=== PATIENT | female | born 1970 | race Caucasian/White ===

== ENCOUNTER 2018-09-18 07:35 | Outpatient (CLI) | payer OTHER ==
--- NOTE | 2018-09-18 09:01 | ULT ---
ULTRASOUND ABDOMEN COMPLETE: Date: 09/18/18 INDICATION: Nausea, vomiting, chronic diarrhea, elevated total bilirubin. TECHNIQUE: Mishra-scale ultrasound evaluation of the liver, gallbladder, spleen, pancreas, common bile duct, kidne ys, abdominal aorta, and inferior vena cava (IVC). FINDINGS: No focal hepatic lesion. There is a contracted gallbladder producing prominence of the gallbladder wa ll at 4.0 mm. No evidence of hydronephrosis involving the kidneys. Spleen is of normal volume. No asc ites. Imaged aorta is unremarkable. Pancreas is partially obscured from view by bowel content limitin g assessment. Otherwise, no significant abnormality is documented. IMPRESSION: 1. Contracted gallbladder limiting assessment. 2. No definite acute process of the abdomen is demonstrated by sonographic evaluation. POS: [facility]
== END 2018-09-18 07:36 | disposition home or self-care (01) ==
LOC: ULT 07:35
PROVIDERS: ATTEND Internal Medicine
DX: K52.9 Noninfective gastroenteritis and colitis, unspecified (principal); R11.2 Nausea with vomiting, unspecified; R17 Unspecified jaundice; K82.0 Obstruction of gallbladder
CPT/HCPCS: 76700

== ENCOUNTER 2018-10-28 07:42 | Outpatient (CLI) | payer OTHER ==
--- NOTE | 2018-10-28 08:46 | RAD ---
CERVICAL SPINE 3 VIEWS: Date: 10/28/18 HISTORY: M50.30, DDD, neck pain with numbness and tingling in both arms and hands. Exam includes flexion and extension lateral views. FINDINGS: Disc osteophytosis at C6-C7. No abnormal translation. C7-T1 is partially obscured. IMPRESSION: Spondylosis with disc osteophytosis, most marked at C6-C7. POS: [facility]
--- NOTE | 2018-10-28 08:54 | RAD ---
LUMBAR SPINE THREE VIEWS: HISTORY: Degenerative disk disease. Low back pain. TECHNIQUE: Exam includes standing flexion and extension lateral views. FINDINGS: Generalized minimal disk osteophytosis. No malalignment. No abnormal translation. IMPRESSION: Evidence for lumbar spondylosis without other acute process. POS: [facility]
--- NOTE | 2018-10-28 09:37 | MRI ---
Exam: MRI cervical spine without contrast HISTORY: Neck pain. Numbness and tingling in both upper extremities.. COMPARISON: None FINDINGS: Appropriate T1 marrow signal intensity of the cervical vertebra. Cervical spine vertebral body heigh t is maintained. No fracture. No significant STIR hyperintensity to suggest vertebral body edema or ligamentous. Visualized brain parenchyma, cervicomedullary junction, cervical cord and the upper thoracic cord are normal size and signal intensity C2-C3: No significant central canal stenosis or neural foraminal narrowing C3-C4: No significant central canal stenosis or neural foraminal narrowing C4-C5: No significant central canal stenosis or neural foraminal narrowing C5-C6: Broad-based disc osteophyte complex with a central component. Mass effect upon the thecal sac. Subarachnoid space is maintained. Deformity of the cervical cord, without signal abnormality. Mild central canal stenosis. Minimal bilateral foraminal narrowing. C6-C7: Broad-based discussed by complex abuts the thecal sac. Ventral subarachnoid space is maintaine d. Mild central canal stenosis. No significant mass effect upon the cervical cord. Mild right foraminal narrowing due to uncovertebral hypertrophy. Left neural foramen is patent. C7-T1: No significant central canal stenosis. Neural foramina are patent. IMPRESSION: 1. Degenerative disc disease at C5-C6 and C6-C7 as detailed above. Nevertheless, no high-grade centra l canal stenosis 2. No evidence of cervical spine fracture. No evidence of significant neural foraminal narrowing.
--- NOTE | 2018-10-28 10:04 | MRI ---
MRI LUMBAR SPINE WITHOUT IV CONTRAST: HISTORY: M51.36, degenerative disk disease. Low back pain following a fall two years ago. TECHNIQUE: Multiplanar, multisequence MRI examination of the lumbar spine is performed. FINDINGS: There is some generalized disk desiccation changes and some ligament and facet hypertrophic changes. The conus medullaris region appears unremarkable. Multiple intraosseous benign bony hemangiomas are noted. T12-L1: Unremarkable. L1-L2: Unremarkable. L2-L3: Unremarkable. L3-L4: Unremarkable. L4-L5: Broad-based left posterolateral protrusion with mild lateral recess stenosis and moderate lef t foraminal stenosis. L5-S1: Unremarkable. IMPRESSION: 1. Soft tissue edema changes noted in the dorsal soft tissues, from approximately the L1 through the L3 spinous process levels. 2. Left posterolateral protrusion at L4-L5 with mild lateral recess stenosis and moderate left aditya inal stenosis. Generalized disk desiccation changes and ligament and facet hypertrophic changes. POS: [facility]
== END 2018-10-28 07:43 | disposition home or self-care (01) ==
LOC: TBSIIMAG 07:42
PROVIDERS: ATTEND Neurological Surgery
DX: M51.36 Other intervertebral disc degeneration, lumbar region (principal); M50.322 Other cervical disc degeneration at C5-C6 level; M47.816 Spondylosis without myelopathy or radiculopathy, lumbar region; M47.812 Spondylosis without myelopathy or radiculopathy, cervical region; M25.78 Osteophyte, vertebrae; M79.9 Soft tissue disorder, unspecified; M51.26 Other intervertebral disc displacement, lumbar region; M48.061 Spinal stenosis, lumbar region without neurogenic claudication
CPT/HCPCS: 72040; 72100; 72141; 72148

== ENCOUNTER 2018-11-13 12:32 | Outpatient (CLI) | payer OTHER ==
--- NOTE | 2018-11-13 13:07 | MMO ---
Bilateral MAMMO Bilat Screen [facility]. CLINICAL HISTORY: Patient is 48 years old and is seen for screening. The patient has no family history of breast cancer. The patient has no personal history of cancer. VIEWS: The views performed were: bilateral craniocaudal with tomosynthesis; bilateral mediolateral oblique with tomosynthesis; and left mediolateral oblique. MAMMOGRAM FINDINGS: The breasts are heterogeneously dense, which could obscure a lesion on mammography. There are no suspicious masses, suspicious calcifications, or new areas of architectural distortion. IMPRESSION: THERE IS NO MAMMOGRAPHIC EVIDENCE OF MALIGNANCY. A ROUTINE FOLLOW-UP MAMMOGRAM IN 1 YEAR IS RECOMMENDED. THE RESULTS OF THIS EXAM WERE SENT TO THE PATIENT. ACR BI-RADS Category 1 - Negative MAMMOGRAPHY NOTE: 1. A negative mammogram report should not delay a biopsy if a dominant of clinically suspicious mass is present. 2. Approximately 10% to 15% of breast cancers are not detected by mammography. 3. Adenosis and dense breasts may obscure an underlying neoplasm.
== END 2018-11-13 12:33 | disposition home or self-care (01) ==
LOC: BICMAMMO 12:32
PROVIDERS: ATTEND Internal Medicine
DX: Z12.31 Encounter for screening mammogram for malignant neoplasm of breast (principal)
CPT/HCPCS: 77063; 77067

== ENCOUNTER 2019-01-27 06:30 | Observation (INO) | payer OTHER ==
[2019-01-22 13:05] VITALS: BMI 27.2
[2019-01-27] MEDS ORDERED: Sodium Chloride 0.9% 10 ML ONE (06:54)
[2019-01-27] MEDS ORDERED: Fentanyl 100 MCG/2 ML VIAL ONE ×2 (07:14→09:50)
[2019-01-27] MEDS ORDERED: ceFAZolin Sodium (SDC) 2 GM/100 ML BAG ONE (07:14)
[2019-01-27] MEDS ORDERED: Midazolam HCl 2 mg/2 ml Vial ONE ×2 (07:16→07:54)
[2019-01-27] MEDS ORDERED: Fentanyl 250 MCG/5 ML VIAL ONE (07:28)
[2019-01-27] MEDS ORDERED: HYDROmorphone 2 MG/ML VIAL ONE (10:03)
[2019-01-27] MEDS ORDERED: Glycopyrrolate 0.2 MG/ML 5 ML SYRINGE ONE (10:40)
[2019-01-27] MEDS ORDERED: Ondansetron PF 4 MG/2 ML Vial ONE (10:40)
[2019-01-27] MEDS ORDERED: PHENYLEPHRINE-NS 100 MCG/ML 10 ML SYRINGE ONE (10:40)
[2019-01-27] MEDS ORDERED: Dexamethasone 20 MG/5 ML VIAL ONE (10:40)
[2019-01-27] MEDS ORDERED: Ketorolac Tromethamine 30 MG/ML VIAL ONE (10:40)
--- NOTE | 2019-01-27 11:23 | OP ---
DATE OF PROCEDURE: 01/27/2019 CORPORATE ACCOUNTANT: Forrest Krishnamurthy PA-C PROCEDURES PERFORMED: Anterior cervical diskectomy C5-C6 and C6-C7. interbody arthrodesis, intervertebral biomechanical device, local morselized autograft, demineralized bone matrix, anterior titanium instrumentation C5-C6 and C6-C7. DESCRIPTION OF PROCEDURE: The patient was brought to the operating room and intubated. She was positioned supine with head in modest extension on a gel-filled donut. An incision was made in the right precervical area and dissecting medial sternocleidomastoid muscle. We identified the anterior cervical spine and the level was confirmed by x-ray. We debrided the anterior osteophytes, placed distraction across the disk spaces, and completely decompressed the intervertebral disk. The bony endplates were then decorticated for the purpose of arthrodesis and appropriate-sized intervertebral biomechanical PEEK device was brought into the field, filled with demineralized bone matrix and local morselized autograft, and tapped in place securely at C5-C6 and C6-C7. Next, an anterior plate was brought into the field and secured to C5, C6, and C7 using two 14-mm screws at each level. The wound was then extensively irrigated and MAC hemostasis was secured and the wound was closed in anatomic layers. Job ID: [id number]
[2019-01-27] MEDS ORDERED: Promethazine HCl 25 MG/ML VIAL IM PRN (11:48)
[2019-01-27] MEDS ORDERED: Promethazine HCl 12.5 MG SUPP PR PRN (11:48)
[2019-01-27] MEDS ORDERED: traMADol HCl 50 MG TAB PO PRN ×2 (11:48)
[2019-01-27] MEDS ORDERED: Ondansetron PF 4 MG/2 ML Vial IVP PRN (11:48)
[2019-01-27] MEDS ORDERED: Promethazine 25 MG TAB PO PRN (11:48)
[2019-01-27] MEDS ORDERED: Milk Of Magnesia 30 ML UDCUP PO PRN (11:48)
[2019-01-27] MEDS ORDERED: diphenhydrAMINE 50 MG/ML VIAL IVP PRN (11:48)
[2019-01-27] MEDS ORDERED: HYDROcodone/Acetaminophen 10/325 mg Tablet PO PRN (11:48)
[2019-01-27] MEDS ORDERED: Mag-Al 1200 mg/1200 mg/30 ML UDCUP PO PRN (11:48)
[2019-01-27] MEDS ORDERED: diphenhydrAMINE 25 MG CAP PO PRN (11:48)
[2019-01-27] MEDS ORDERED: Morphine 4 MG/ML VIAL SLOW IVP PRN (11:48)
[2019-01-27] MEDS: Sodium Chloride 0.9% 1,000 ML IV SCH (11:57)
[2019-01-27] MEDS: tiZANidine HCl 4 MG TAB PO PRN ×2 (12:12→17:56)
[2019-01-27] MEDS: HYDROcodone/Acetaminophen 10/325 mg Tablet PO PRN ×3 (12:13→20:43)
[2019-01-27] MEDS ORDERED: CEFAZOLIN 2 GM, IV Admixture Fee-Chemo 1 UNITS in Sodium Chloride 0.9% 100 ML IVPB SCH (14:00)
[2019-01-27] MEDS: CEFAZOLIN 2 GM, Admixture Fee 1 EACH in Sodium Chloride 0.9% 100 ML IVPB SCH (16:56)
[2019-01-28] MEDS: tiZANidine HCl 4 MG TAB PO PRN ×2 (00:08→06:25)
[2019-01-28] MEDS: HYDROcodone/Acetaminophen 10/325 mg Tablet PO PRN ×3 (00:09→09:36)
[2019-01-28] MEDS: CEFAZOLIN 2 GM, Admixture Fee 1 EACH in Sodium Chloride 0.9% 100 ML IVPB SCH (00:24)
[2019-01-28] MEDS: Sodium Chloride 0.9% 1,000 ML IV SCH (03:33)
[2019-01-28 04:01] VITALS: TEMP 97.9
[2019-01-28 08:03] VITALS: BP 148/83
[2019-01-28] MEDS ORDERED: Montelukast Sodium 10 mg Tablet PO SCH (09:00)
[2019-01-28] MEDS ORDERED: Non-Formulary Item 1 EACH (Valsartan [Valsartan] 1 TAB) PO SCH (09:00)
[2019-01-28] MEDS ORDERED: Valsartan 80 MG TAB PO SCH (09:00)
--- NOTE | 2019-01-28 16:31 | CON ---
DATE OF CONSULTATION: PRIMARY CARE PROVIDER: Dr. Ivette Balbuena. CHIEF COMPLAINT: Management of medical comorbidities. HISTORY OF PRESENT ILLNESS: Ms. Nelson is a pleasant 48-year-old lady, who was seen at [facility] on January 28, 2019, for management of medical comorbidities following anterior cervical diskectomy and interbody arthrodesis by Neurosurgery Service. She denies any chest pain or shortness of breath. She denies any fevers or chills. She denies any nausea or vomiting. She has no complaints at this time. REVIEW OF SYSTEMS: All systems were reviewed and found to be negative. PAST MEDICAL HISTORY: 1. Diabetes mellitus type 1. 2. Coronary artery disease. 3. Dyslipidemia. 4. Seasonal allergies. 5. Hypertension. 6. Coronary artery disease. 7. Myocardial infarction. PAST SURGICAL HISTORY: 1. Partial hysterectomy. 2. Coronary artery bypass graft. 3. section x2. 4. Cervical spine surgery during this hospitalization. 5. Bilateral shoulder surgery. 6. Bilateral knee surgery. FAMILY HISTORY: Significant for coronary artery disease. SOCIAL HISTORY: Negative for tobacco use, alcohol use, or recreational drug use. ALLERGIES: MORPHINE. HOME MEDICATIONS: 1. Humalog insulin. 2. Aspirin 81 mg daily. 3. Atorvastatin 80 mg at bedtime. 4. Plavix 75 mg daily. 5. Metoprolol succinate 100 mg daily. 6. Montelukast 10 mg daily. 7. Protonix 40 mg 2 times a day. 8. Promethazine p.r.n. 9. Bactrim 1 tablet 2 times a day. 10. Valsartan 320 mg daily. PHYSICAL EXAMINATION: GENERAL: On examination, Ms. Nelson is awake and alert, not in acute distress. VITAL SIGNS: Blood pressure is 148/83, pulse 76, respiratory rate 16, and oxygen saturation 98% on room air. She is afebrile. EYES: No scleral icterus, no conjunctival pallor. ENT: Moist mucosal membranes. No oropharyngeal erythema or exudates. NECK: Supple, nontender. Trachea is midline. RESPIRATORY: Accessory muscles of breathing are not active. Chest wall movements are symmetric bilaterally. Lungs are clear to auscultation without wheeze, rhonchi, or crepitations. CARDIOVASCULAR: S1 and S2 are heard, regular. Peripheral pulses palpable. No carotid bruit. No pericardial rub. ABDOMEN: Soft, nontender. Bowel sounds heard. NEUROLOGIC: Cranial nerves 2 through 12 are intact. MUSCULOSKELETAL: Moving all 4 extremities. SKIN: No rashes or subcutaneous nodules. LYMPHATIC: No cervical lymphadenopathy. PSYCHIATRIC: Normal mood, normal affect. The patient is oriented to person, place, and time. LABORATORY DATA: Ms. Nelson's labs and investigations were reviewed. On January 22, she had decreased white count of 4700, normal hemoglobin, normal platelet count, mildly decreased sodium of 135, and normal creatinine. ASSESSMENT AND PLAN: Ms. Nelson is a pleasant 48-year-old lady, who was seen at [facility] on January 28, 2019, for management of medical comorbidities. Her problem list includes: 1. Hypertension: We will resume home medications, monitor vital signs and titrate antihypertensives as needed. 2. Diabetes mellitus type 1: We will resume insulin once dose is clarified. 3. Coronary artery disease: This appears to be stable. 4. Dyslipidemia: Continue atorvastatin. Many thanks for allowing me to participate in the patient's care. Please feel free to contact me with any questions or concerns. LEVEL OF RISK: Low. LEVEL OF COMPLEXITY: Low. Job ID: [id number]
== END 2019-01-28 11:06 | disposition home or self-care (01) ==
LOC: SDC 06:30 → SURG A 09:42
PROVIDERS: ADMIT Neurological Surgery; ATTEND Neurological Surgery
PROC: 0RG20A0 Fusion of 2 or more Cervical Vertebral Joints with Interbody Fusion Device, Anterior Approach, Anterior Column, Open Approach (ICD-10-PCS; principal; 2019-01-28)
PROC: 0RG2070 Fusion of 2 or more Cervical Vertebral Joints with Autologous Tissue Substitute, Anterior Approach, Anterior Column, Open Approach (ICD-10-PCS; 2019-01-28)
PROC: 0RB30ZZ Excision of Cervical Vertebral Disc, Open Approach (ICD-10-PCS; 2019-01-28)
DX: M47.22 Other spondylosis with radiculopathy, cervical region (principal); E10.9 Type 1 diabetes mellitus without complications; I25.10 Atherosclerotic heart disease of native coronary artery without angina pectoris; E78.5 Hyperlipidemia, unspecified; I10 Essential (primary) hypertension; I25.2 Old myocardial infarction; Z95.1 Presence of aortocoronary bypass graft; Z88.5 Allergy status to narcotic agent; Z79.82 Long term (current) use of aspirin; Z79.2 Long term (current) use of antibiotics; Z79.899 Other long term (current) drug therapy
CPT/HCPCS: 76000; 96361; 96365; 96366; C1713; C1776; G0378; J0131; J0690; J1170; J2250; J3010; J3490

== ENCOUNTER 2019-02-12 08:50 | Outpatient (CLI) | payer OTHER ==
--- NOTE | 2019-02-12 10:41 | RAD ---
CERVICAL SPINE SERIES 3 VIEWS: HISTORY: Followup of neck surgery done 2 weeks ago. FINDINGS: The patient has undergone an anterior cervical fusion. There has been placement of plate and screws which extend from C5 to C7. Markers of the disk implants are within the confines of the disk level. Minimal residual prevertebral soft tissue swelling is still present. IMPRESSION: Postoperative changes of the spine. POS: [facility]
== END 2019-02-12 08:51 | disposition home or self-care (01) ==
LOC: TBSIIMAG 08:50
PROVIDERS: ATTEND Neurological Surgery
DX: M54.12 Radiculopathy, cervical region (principal); Z98.1 Arthrodesis status
CPT/HCPCS: 72040

== ENCOUNTER 2019-04-15 14:24 | Outpatient (CLI) | payer OTHER ==
--- NOTE | 2019-04-15 15:23 | RAD ---
Cervical spine 4 views HISTORY: Neck pain. Prior surgery. FINDINGS: Straightening of the normal lordotic curvature. Anterior fixation plate and screws at the C 3 5-6-7 levels. Metallic markers are within the confines of the disc spaces at the postoperative levels. Cervicothoracic junction is intact. No. Hardware lucency. No acute fracture or dislocation. IMPRESSION: Anterior operative fixation lower cervical spine. No evidence of hardware complication or acute osseous abnormality.
== END 2019-04-15 14:25 | disposition home or self-care (01) ==
LOC: TBSIIMAG 14:24
PROVIDERS: ATTEND Neurological Surgery
DX: M54.12 Radiculopathy, cervical region (principal); Z98.890 Other specified postprocedural states
CPT/HCPCS: 72040

== ENCOUNTER 2019-12-01 10:31 | Outpatient (CLI) | payer BC ==
[2019-12-01] MEDS ORDERED: Lidocaine 1% PF 10 ML AMP ONE (11:05)
[2019-12-01] MEDS ORDERED: Iopamidol 300 61% 50 ML VIAL FS ONE (11:05)
[2019-12-01] MEDS ORDERED: Gadobenate Dimeglumine 529 MG/1 ML (20ML VIAL) ONE (11:05)
[2019-12-01] MEDS ORDERED: EPINEPHrine 1 MG/ML AMP ONE (11:05)
--- NOTE | 2019-12-01 13:06 | RAD ---
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 FINDINGS: Two-view billing associate left hip radiograph demonstrates preservation of the contour of the femoral head. Hip joint space is preserved. No fracture. Successful left hip arthrogram. Total of 12 cc of the contrast admixture was administered into the marium int space. Patient tolerated the procedure well. No immediate or postprocedural complications. TECHNIQUE: Consent obtained to perform a left hip arthrogram. Left hip was prepped and draped in a sterile fashi on. 1% lidocaine, buffered with sodium bicarbonate was used for local anesthesia. Under fluoroscopic guidance, a 22-gauge spinal needle was advanced into the left hip joint space. A total o f 12 cc of the contrast admixture was administered into the joint space. No immediate or postprocedural complications. IMPRESSION: Successful left hip arthrogram. Transcribed Date/Time: 12/01/2019 1:25 PM
--- NOTE | 2019-12-01 13:39 | MRI ---
LEFT HIP MRI POST ARTHROGRAM CONTRAST: HISTORY: Left hip pain. FINDINGS: Multiplanar, multisequence MRI examination of the left hip is performed. No evidence for abnormal ma rrow signal to suggest fracture, acute stress injury, or avascular necrosis. Probable very tiny focu s of chondral labral separation at the level of the anterior superior labrum. No evidence for acute muscle or tendon injury. No significant abnormal trochanteric bursal fluid. Trace free pelvic fluid . IMPRESSION: Probable very tiny focus of chondral labral separation of the anterior superior labrum. No evidence for other significant acute process. POS: [facility]
== END 2019-12-01 10:32 | disposition home or self-care (01) ==
LOC: RAD 10:31
PROVIDERS: ATTEND Orthopaedic Surgery
DX: M16.12 Unilateral primary osteoarthritis, left hip (principal); M24.152 Other articular cartilage disorders, left hip; M25.852 Other specified joint disorders, left hip
CPT/HCPCS: 27093; A9577; J0171; J2001; Q9967

== ENCOUNTER 2021-05-30 14:00 | Outpatient (CLI) | payer BC | END 2021-05-30 14:01 | disposition home or self-care (01) | LOC: BICMAMMO 14:00 | PROVIDERS: ATTEND Internal Medicine | DX: Z12.31 Encounter for screening mammogram for malignant neoplasm of breast (principal); Z13.820 Encounter for screening for osteoporosis; Z78.0 Asymptomatic menopausal state | CPT/HCPCS: 77063; 77067; 77080 ==

== ENCOUNTER 2024-01-09 12:57 | Outpatient (CLI) | payer BC | END 2024-01-09 12:58 | disposition home or self-care (01) | LOC: BICMAMMO 12:57 | PROVIDERS: ATTEND Internal Medicine | DX: Z12.31 Encounter for screening mammogram for malignant neoplasm of breast (principal); Z13.820 Encounter for screening for osteoporosis; M85.851 Other specified disorders of bone density and structure, right thigh; M85.852 Other specified disorders of bone density and structure, left thigh; Z78.0 Asymptomatic menopausal state | CPT/HCPCS: 77063; 77067; 77080 ==

== ENCOUNTER 2025-01-09 10:40 | Outpatient (CLI) | payer BC | END 2025-01-09 10:41 | disposition home or self-care (01) | LOC: BICMAMMO 10:40 | PROVIDERS: ATTEND Internal Medicine | DX: Z12.31 Encounter for screening mammogram for malignant neoplasm of breast (principal); N64.89 Other specified disorders of breast | CPT/HCPCS: 77063; 77067 ==